=== PATIENT | female | born 1970 ===

== ENCOUNTER 2019-01-08 11:31 | Outpatient (CLI) | payer OTHER ==
[~2019-01-08] VITALS: Ht 152.4 cm; Wt 4.5 kg
== END 2019-01-08 15:20 | disposition home or self-care (01) ==
LOC: OFIC 805 11:31
DX: H81.43 Vertigo of central origin, bilateral (principal); H60.8X3 Other otitis externa, bilateral; R42 Dizziness and giddiness

== ENCOUNTER 2019-03-24 14:08 | Outpatient (CLI) | payer OTHER | END 2019-03-24 14:17 | disposition home or self-care (01) | LOC: LAB 14:08 | DX: R53.1 Weakness (principal); Z13.6 Encounter for screening for cardiovascular disorders; Z00.00 Encounter for general adult medical examination without abnormal findings; R53.81 Other malaise; J11.1 Influenza due to unidentified influenza virus with other respiratory manifestations ==